=== PATIENT | male | born 2000 | race Caucasian/White ===

== ENCOUNTER 2024-01-13 20:25 | Emergency (ER) | payer SELFPAY ==
[~2024-01-13] VITALS: Ht 180.3 cm; Wt 86.4 kg
[2024-01-13 20:29] VITALS: BP 115/73; PULSE 90; RESP 18; TEMP 98.2; O2SAT 100
== END 2024-01-13 22:32 | disposition left against medical advice (07) ==
LOC: EMS 20:25
DX: G89.18 Other acute postprocedural pain (principal); Z53.21 Procedure and treatment not carried out due to patient leaving prior to being seen by health care provider